=== PATIENT | male | born 1985 | race Caucasian/White ===

== ENCOUNTER 2018-07-19 11:09 | Emergency (ER) | payer OTHER, SELFPAY ==
[2018-07-19 11:10] VITALS: BP 161/102; PULSE 113; RESP 14; TEMP 36.6; O2SAT 98
[2018-07-19 11:30] VITALS: BP 143/93; PULSE 101; RESP 17; O2SAT 94
--- NOTE | 2018-07-19 11:55 | PC.NURSE ---
Patient reports has been having similar symptoms over last several months, Has been evaluated by [facility]. Completed a 72hr holter monitor on thursday. Patient reports significant weight loss from 340lbs down to 275 in last 3 months or so. Patient states he has improved his diet, cut back on soda and feels that he is hydrating better. Denies anxiety but reports a fair amount of stress over last several months which he attributes weight loss too as well. Patient states he hasn't been taking his blood pressure medications last couple days because he thinks it is contributing to his symptoms. Noted increase in patients heart rate from 105-120 when haivng patient sit forward to listen to lungs, reported some dizziness with position change. patient on cardiac care unit nurse and will continue to monitor patient.
[2018-07-19 12:23] VITALS: BP 140/100; BP 152/92; BP 156/99; PULSE 102; PULSE 104; PULSE 113
[2018-07-19] MEDS: SODIUM CHLORIDE 0.9% 1,000 ML 1000 ML IV (12:30)
[2018-07-19 12:31] LABS: Add Manual Diff / Slide Review NO; Basophils Percent Auto 0.4 % (0-2); Eosinophils Percent Auto 0.6 % (2-4); Hematocrit 48.8 % (41-53); Hemoglobin 16.3 g/dL (13.5-17.5); Lymphocytes Percent Auto 14.2 % (25-40); Mean Corpuscular HGB Conc 33.4 % (30-36); Mean Corpuscular Hemoglobin 28.8 PG (26-34); Mean Corpuscular Volume 86.1 fL (80-100); Monocytes Percent Auto 6.5 % (3-14); Neutrophils Absolute Auto 9300 /uL (3000-5900); Neutrophils Percent Auto 78.3 % (50-75); Platelet Count 162 X10^3/uL (150-400); Red Blood Cell Count 5.66 X10^6/uL (4.5-5.9); Red Cell Distribution Width 17.1 % (11.6-14.8); White Blood Cell Count 11.8 X10^3/uL (4.5-11.0)
--- NOTE | 2018-07-19 12:39 | ED.DIZZY ---
HPI - Dizziness General Chief Complaint: Dizziness Stated Complaint: DIZZINESS/PALPITATIONS Time Seen by Provider: 07/19/18 11:55 Source: patient Mode of arrival: ambulatory Limitations: no limitations History of Present Illness HPI Narrative: Patient is a 32-year-old male who presents with dizziness and heart palpitations. He is 3rd visit to an emergency department in 1 week for the same. He has had a Holter monitor I previously seen at telling him to do early. He recently lost about 50 lb to help control his blood pressure. He has been off his blood pressure meds for about 4 days. He feels dizzy and lightheaded every time he stands up he has been drinking Pedialyte and water feels like he is dehydrated. He sometimes has heart palpitations he sometimes feels pressure in his chest with sometimes short of breath. Heart rate is noted to be irregular here. MD complaint: dizziness and lightheadedness Related Data Home Medications Medication Instructions Recorded Confirmed Estrogen Chelsie 1 dose MISCELLANEOUS 2XW 07/19/18 07/19/18 Human Gonadotropin 1 dose MISCELLANEOUS 3XW 07/19/18 07/19/18 levothyroxine 1 tab PO DAILY 07/19/18 07/19/18 losartan 1 tab PO DAILY 07/19/18 07/19/18 testosterone cypionate 1 dose MISCELLANEOUS 2XW 07/19/18 07/19/18 Previous Rx's Medication Instructions Recorded meclizine 25 mg PO BID-TID PRN #14 tab 07/19/18 Allergies Allergy/AdvReac Type Severity Reaction Status Date / Time Penicillins Allergy Severe Hives Verified 07/19/18 12:35 Sulfa (Sulfonamide Allergy Severe Hives Verified 07/19/18 12:35 Antibiotics) Review of Systems Review of Systems GENERAL: Denies chills, fatigue, malaise, fever, sweats, travel HEENT: Denies sinus pain, ear pain, sore throat, difficulty swallowing, neck pain RESPIRATORY: Denies dyspnea, cough, wheezing, hemoptysis, sputum. CARDIOVASCULAR: See HPI GASTROINTESTINAL: Denies nausea, vomiting, abdominal pain, diarrhea, constipation, melena. : Denies dysuria, frequency, incontinence, hematuria, urinary retention, flank pain. MUSCULOSKELETAL: Denies weakness, joint pain, or bony pain SKIN: No rash, no erythema, no pruritus NEUROLOGIC: Denies weakness, headache, numbness, change in speech, confusion PSYCHIATRIC: No concerning psychosocial issues. 12 point review of systems is negative except for those stated above and HPI [facility] Medical History Hypertension (Acute) Obesity (Acute) Palpitation (Acute) Social History Smoking Status: Current every day smoker Exam Initial Vital Signs Initial Vital Signs: Vital Signs Temperature 97.8 F 07/19/18 11:10 Pulse Rate 113 H 07/19/18 11:10 Respiratory Rate 14 07/19/18 11:10 Blood Pressure 161/102 H 07/19/18 11:10 Pulse Oximetry 98 07/19/18 11:10 GENERAL: Well-appearing, well-nourished and in no acute distress. HEENT: Head atraumatic,EOMI, pupils reactive, face symmetric CARDIOVASCULAR: Regular rate and rhythm without murmurs, rubs or gallops. RESPIRATORY: Breath sounds equal bilaterally, no wheezes rales or rhonchi. ABDOMEN: Soft, nontender. Normoactive bowel sounds all 4 quadrants. No guarding or rebound. EXTREMITIES: Normal range of motion, no clubbing or edema. Neurovascularly intact NEUROLOGICAL: Alert and oriented x4.Normal gait and speech. Cranial nerves II through XII grossly intact. Good [id number], good [id number], strength equal bilaterally, no dysarthria or aphasia, sensation in tact to soft touch bilaterally, no visual changes, no facial droop SKIN: Warm, dry, no laceration, no petechiae, no rashes or lesions. Scores PERC Score Age greater than or equal to 50 years: No Heart rate greater than or equal to 100 bpm: Yes Room Air O2 Sat less than 95%: No Unilateral leg swelling: No Recent trauma or surgery: No Hemoptysis: No Prior PE or DVT: No Hormone Use: No Total PERC Score: 1 Course Orders Ordered: ED Orders 07/19/18 12:05 D Dimer Stat 07/19/18 12:25 Basic Metabolic Panel Stat Complete Blood Count AUTO DIFF Stat Discontinued Medications Sodium Chloride (Normal Saline 0.9%) 1,000 mls @ 1,000 mls/hr IV CONT DAVID Last Infusion: 07/19/18 13:36 Dose: 0 mls/hr Admin: 07/19/18 12:30 Dose: 1,000 mls/hr Ondansetron HCl (Zofran) 4 mg IV NOW ONE Stop: 07/19/18 12:21 Last Admin: 07/19/18 13:25 Dose: Not Given Vital Signs - 8 hr 07/19/18 11:10 07/19/18 11:30 07/19/18 12:23 Temperature 97.8 F Pulse Rate 113 H 101 H Pulse Rate [Orthostatic Lying] 102 H Pulse Rate [Orthostatic Sitting] 104 H Pulse Rate [Orthostatic Standing] 113 H Respiratory Rate 14 17 Blood Pressure 161/102 H Blood Pressure [Left Arm] 143/93 H Blood Pressure [Orthostatic Lying] 152/92 H Blood Pressure [Orthostatic Sitting] 156/99 H Blood Pressure [Orthostatic Standing] 140/100 H Pulse Oximetry 98 94 07/19/18 13:58 Temperature Pulse Rate 98 H Pulse Rate [Orthostatic Lying] Pulse Rate [Orthostatic Sitting] Pulse Rate [Orthostatic Standing] Respiratory Rate 12 Blood Pressure 127/77 Blood Pressure [Left Arm] Blood Pressure [Orthostatic Lying] Blood Pressure [Orthostatic Sitting] Blood Pressure [Orthostatic Standing] Pulse Oximetry 98 MDM - Dizziness Medical Records Attestation: I reviewed the patient's medical records. Lab Data Attestation: I reviewed the patient's lab results. Result diagrams: 07/19/18 12:25 07/19/18 12:25 Lab Results 07/19/18 07/19/18 07/19/18 Range/Units 12:05 12:25 12:25 WBC 11.8 H (4.5-11.0) X10^3/uL RBC 5.66 (4.5-5.9) X10^6/uL Hgb 16.3 (13.5-17.5) g/dL Hct 48.8 (41-53) % MCV 86.1 (80-100) fL MCH 28.8 (26-34) PG MCHC 33.4 (30-36) % RDW 17.1 H (11.6-14.8) % Plt Count 162 (150-400) X10^3/uL Neut % (Auto) 78.3 H (50-75) % Lymph % (Auto) 14.2 L (25-40) % [place] % (Auto) 6.5 (3-14) % Eos % (Auto) 0.6 L (2-4) % Baso % (Auto) 0.4 (0-2) % Neut # (Auto) 9300 H (0313-3989) /uL D-Dimer < 200 (<230) ng/mL Sodium 138 (137-145) mmol/L Potassium 3.6 (3.4-5.1) mmol/L Chloride 99 (98-107) mmol/L Carbon Dioxide 27 (22-32) mmol/L BUN 7 L (9-20) mg/dL Creatinine 0.70 (0.66-1.25) mg/dL Estimated GFR > 60.0 (>60) mL/min BUN/Creatinine Ratio 10.0 (6-22) Glucose 90 (70-100) mg/dL Calcium 9.4 (8.4-10.2) mg/dL ECG Data Attestation: I personally reviewed and interpreted this ECG as follows: Interpretation: Normal sinus rhythm rate [address] changes no delta waves appear interval 148 QRS 100 QTC 386 MDM Narrative Medical decision making narrative: The patient has had a head CT at billing him which was negative. He has had a Holter monitor he is waiting for those results. He has not passed out. He has a negative D-dimer unlikely to be a PE. Recommended outpatient follow-up with his primary. He also is not taking blood pressure medication is blood pressure has been fine here I recommend that he continue to NOT take it may be contributing to his symptoms Discharge Plan Departure Patient Disposition: Home Clinical Impression: Vertigo, Heart palpitations Discharge Date/Time: 07/19/18 14:00 Interventions: ED Discharge Assessment Last Done: 07/19/18 13:58 Instructions: Benign Paroxysmal Positional Vertigo, DI for Palpitations Activity Restrictions/Additional Instructions: *You have been diagnosed with vertigo, heart palpitations *What to do: Recommend waiting for Holter monitor results. *Continue to take medications as directed Meclizine 1 tablet 3 times a day if needed for dizziness if this is not helping do not take it this does cause drowsiness *[facility] *Follow up with your primary care provider in 2-3 days *Return to ER if you should have passing out, persistent vomiting, increasing chest pain or any new, worsening or concerning symptoms Prescriptions: New meclizine 25 mg tablet 25 mg PO BID-TID PRN (Reason: dizziness) Qty: 14 RF: 0 No Action levothyroxine 100 mcg tablet 1 tab PO DAILY RF: 0 losartan 100 mg tablet 1 tab PO DAILY RF: 0 Estrogen Chelsie 1 dose miscellaneous 2XW RF: 0 Human Gonadotropin 1 dose miscellaneous 3XW RF: 0 testosterone cypionate 1 dose miscellaneous 2XW RF: 0
[2018-07-19 12:43] LABS: Blood Urea Nitrogen 7 mg/dL (9-20); Calcium 9.4 mg/dL (8.4-10.2); Carbon Dioxide 27 mmol/L (22-32); Chloride 99 mmol/L (98-107); Estimated Glomerular Filt Rate > 60.0 mL/min (>60); Glucose 90 mg/dL (70-100); HEMOLYSIS 18 (0-50); Potassium 3.6 mmol/L (3.4-5.1); Sodium 138 mmol/L (137-145)
[2018-07-19 13:01] LABS: D Dimer < 200 ng/mL (<230)
[2018-07-19 13:58] VITALS: BP 127/77; PULSE 98; RESP 12; O2SAT 98
--- NOTE | 2018-07-22 16:22 | PC.NURSE ---
follow up call, wrong number
== END 2018-07-19 14:00 | disposition home or self-care (01) ==
PROVIDERS: Emergency Provider Emergency Medicine
DX: R42 Dizziness and giddiness (principal)
CPT/HCPCS: 36591; 80048; 85025; 85379; 93005; 93041; 96360; 99283; 99284